=== PATIENT | female | born 1995 | race Caucasian/White ===

== ENCOUNTER 2018-03-04 06:31 | Inpatient (IN) | payer MEDICAID ==
[2018-03-04] VITALS (87 sets, daily range): BP systolic 87–126; BP diastolic 46–77; PULSE 59–120; RESP 18; TEMP 97.9–99.8; O2SAT 97
[~2018-03-04] VITALS: Ht 157.5 cm; Wt 66.2 kg
[~2018-03-04 06:31] MED LIST: ALBUAER3 INH; ALBUS PO; FLOV44AE IN; PREN1CHW7 PO; RANI150T PO; ZANT150T2 PO
[2018-03-04] MEDS ORDERED: LACTATED RINGER'S 1000 ML INJ 1,000 ML IV SCH (07:39)
[2018-03-04] MEDS ORDERED: OXYTOCIN 30 UNITS-500ML PREMIX 500 ML IV ONE (07:45)
[2018-03-04] MEDS ORDERED: MINERAL OIL 10 ML VIAL TOPICAL PRN (07:45)
[2018-03-04] MEDS ORDERED: SODIUM CHLORID 0.9% 500 ML INJ 500 ML IV PRN (07:45)
[2018-03-04] MEDS ORDERED: ONDANSETRON HCL 4 MG/2 ML VIAL IV PUSH PRN (07:45)
[2018-03-04] MEDS ORDERED: LIDOCAINE HCL 1% 50 ML VIAL INFIL PRN (07:45)
[2018-03-04] MEDS ORDERED: CITRIC ACID-SODIUM CITRATE LIQ 30 ML UDC PO SCH (07:45)
[2018-03-04] MEDS ORDERED: LIDOCAINE HCL 1% 50 ML VIAL I-DERMAL PRN (07:45)
--- NOTE | 2018-03-04 07:58 | HHI.HP ---
History & Physical H&P HPI Chief Complaint Contractions Date Seen: Mar 04, 2018 Travel History International Travel<30 Days: No Contact w/Intl Traveler<30Days: No History of Present Illness HPI Patient is a 22 year old at 39-3/7 weeks gestation presenting for contractions. Contractions started around 3AM and have increasing in intensity and frequency. She states that she lost her mucus plug but denies any gush or leaking of fluid. Positive movement. No complications with . History (Limited) History Past Medical History Narrative Medical Asthma, used her albuterol inhaler twice in the past month Obstetric History Obstetric History Past Surgical History Surgical History: No Previous Surgery Family History Family History: Negative Social History Alcohol Use: No Tobacco Use: No Substance Abuse: No Allergies-Medications Allergies-Medications (Allergen,Severity, Reaction): Coded Allergies: amoxicillin (Unverified Allergy, Severe, hives, 11/10/17) penicillin G (Unverified Allergy, Severe, hives, 11/10/17) Home Meds Active Scripts Albuterol 8.5 GM Inh (Proair Hfa 8.5 GM Inh) 90 Mcg/Act Aer, 2 PUFF INH Q4-6H Y for SHORTNESS OF BREATH, #1 INHALER 1 Refill 108 mcg/actuation [facility] Ranitidine (Ranitidine) 150 Mg Tab, 150 MG PO BID for Heartburn Management, #60 TAB 0 Refills Prov:[facility] 07/29/17 Vit W/ Ferric Phospha (Vitafol Gummies 3.33-0.333-34.8 mg) 1 Chw Chw, 1 CHEW PO DAILY, #30 CHEW 4 Refills Prov:[facility] 07/29/17 Vit W/ Ferric Phospha (Vitafol Gummies 3.33-0.333-34.8 mg) 1 Chw Chw, 3 TAB PO DAILY, #90 BOTTLE 11 Refills Prov:Sindi CansecoP 07/22/17 Ranitidine (Zantac) 150 Mg Tab, 150 MG PO BID for Reduce Stomach Acid, #60 TAB 11 Refills Prov:Sindi Canseco [facility] 07/22/17 Reported Medications Fluticasone Propionate Hfa (Flovent Hfa) 44 Mcg Aer, 2 PUFF IN BID, AER 06/18/16 Albuterol Sulfate (Albuterol Sulfate) 2 Mg/5 Ml Syp, 2 MG PO QID, ML 06/18/16 ROS Review of Systems Except as stated in HPI: all other systems reviewed are Neg General / Constitutional: No: Fever, Chills Eyes: No: Blurred Vision, Visual changes HENT: No: Headaches Cardiovascular: No: Palpitations Respiratory: No: Cough, Short of Breath Gastrointestinal: No: Nausea, Vomiting Genitourinary: Pelvic Pain, Discharge, No: Dysuria, Vaginal Bleeding Musculoskeletal: No: Edema Neurologic: No: Headache Psychiatric: No: Substance Abuse Physical Exam Physical Exam Narrative GENERAL: Well-nourished, well-developed patient. SKIN: Warm and dry. HEAD: Normocephalic and atraumatic. EYES: No scleral icterus. No injection or drainage. ENT: No nasal drainage noted. Mucous membranes pink. Airway patent. NECK: Supple, trachea midline. No JVD. CARDIOVASCULAR: Regular rate and rhythm without murmurs, gallops, or rubs. RESPIRATORY: Breath sounds equal bilaterally. No accessory muscle use. ABDOMEN/GI: Abdomen soft, non-tender, bowel sounds present, no rebound, no guarding Gravid to 39 weeks size GENITOURINARY: External Genitalia: intact and normal in appearance Cervix: midposition Dilatation: 3-4 Effacement: 80 Station: -1 Presentation: vertex Membranes: intact Uterine Contractions: q3-4 min FHT's: Category: I Baseline: 140 Reactive: + Variability: moderate Decels: none EXTREMITIES: No cyanosis or edema. BACK: Nontender without obvious deformity. NEUROLOGICAL: Awake and alert. Motor and sensory grossly within normal limits. Normal speech. Data Data Data Vital Signs Reviewed: Yes Orders Orders Admit To Inpatient (03/04/18 ) Code Status (03/04/18 07:39) Vital Signs (Adult) .Per protocol (03/04/18 07:39) Activity Oob Ad Violetta (03/04/18 07:39) Heart (03/04/18 07:39) Amnioinfusion (03/04/18 07:39) Urinary Catheter Management .ONCE (03/04/18 07:39) Diet Liquid (03/04/18 Breakfast) Lactated Ringer's 1000 Ml Inj (Lr 1000 M (03/04/18 07:39) Lactated Ringer's 1000 Ml Inj (Lr 1000 M (03/04/18 07:39) Sodium Chlorid 0.9% 500 Ml Inj (Ns 500 M (03/04/18 07:45) Sodium Chlor 0.9% 1000 Ml Inj (Ns 1000 M (03/04/18 07:59) Lidocaine 1% Inj (50 Ml) (Xylocaine 1% I (03/04/18 07:45) Citric Acid-Sodium Citrate Liq (Bicitra (03/04/18 07:45) Ondansetron Inj (Zofran Inj) (03/04/18 07:45) Fentanyl Inj (Fentanyl Inj) (03/04/18 07:45) Fentanyl Inj (Fentanyl Inj) (03/04/18 07:45) Complete Blood Count With Diff (03/04/18 07:39) Hold Clot (03/04/18 07:39) Abo/Rh Blood Type (03/04/18 07:39) Urinalysis - C+S If Indicated (03/04/18 07:39) Drug Screen, Random Urine (03/04/18 07:39) Ob/Psych Drug Screen, Urine (03/04/18 07:39) Resp Oxygen Non Rebreathe Mask (03/04/18 ) ^ Epidural / Intrathecal Infus (03/04/18 07:39) Oxytocin 30 Units-500ml Premix (Pitocin (03/04/18 07:45) Lidocaine 1% Inj (50 Ml) (Xylocaine 1% I (03/04/18 07:45) Light Mineral Oil (Muri-Lube Oil) (03/04/18 07:45) Inpatient Certification (03/04/18 ) Group B Strep: Negative MDM MDM Medical Record Reviewed: Yes Plan 22 year old at 39-3/7 weeks gestation. 1. IUP- Category I tracing, reassuring. 2. Cervical change noted, will admit for labor. 3. GBS negative. dw. Ct Morgan MD R3 Mar 04, 2018 07:58
[2018-03-04] MEDS ORDERED: SODIUM CHLOR 0.9% 1000 ML INJ 1,000 ML IV PRN (07:59)
[2018-03-04] MEDS ORDERED: CETI5CHW CHEW (08:22)
[2018-03-04 08:26] LABS: AUTOMATED NEUTROPHIL # 10.5 TH/MM3 (1.8-7.7); BASOPHIL # 0.1 TH/MM3 (0-0.2); BASOPHIL % 0.6 % (0.0-2.0); EOSINOPHIL # 0.1 TH/MM3 (0-0.4); EOSINOPHIL % 0.6 % (0.0-4.0); HEMATOCRIT 33.2 % (35.0-46.0); HEMOGLOBIN 11.1 GM/DL (11.6-15.3); LYMPH % 19.3 % (9.0-44.0); LYMPHOCYTE # 2.7 TH/MM3 (1.0-4.8); MEAN CELL VOLUME 74.4 FL (80.0-100.0); MEAN CORPUSCULAR HEMOGLOBIN 24.9 PG (27.0-34.0); MEAN CORPUSCULAR HGB CONC 33.5 % (32.0-36.0); MEAN PLATELET VOLUME 8.6 FL (7.0-11.0); MONO % 5.2 % (0.0-8.0); MONOCYTE # 0.7 TH/MM3 (0-0.9); NEUT % 74.3 % (16.0-70.0); PLATELET COUNT 194 TH/MM3 (150-450); RED BLOOD COUNT 4.46 MIL/MM3 (4.00-5.30); RED CELL DISTRIBUTION WIDTH 14.6 % (11.6-17.2); WHITE BLOOD COUNT 14.1 TH/MM3 (4.0-11.0)
[2018-03-04 08:31] LABS: BACTERIA, URINE FEW /hpf; BILIRUBIN, URINE NEG (NEG); BLOOD, URINE LARGE (NEG); GLUCOSE,URINE NEG (NEG); KETONE, URINE NEG (NEG); MUCUS URINE FEW /lpf (OCC); NITRITE,URINE NEG (NEG); PH, URINE 6.5 (5.0-8.5); SQUAMOUS EPITHELIAL CELL URINE 15 /hpf (0-5); URINE COLOR YELLOW (YELLW/STRAW); URINE LEUKOCYTE ESTERASE LARGE (NEG)
[2018-03-04] MEDS ORDERED: ePHEDrine/NS 25 MG/5 ML SYRINGE ONE (08:36)
[2018-03-04] MEDS ORDERED: fentaNYL 2MCG-BUPIV 0.125% INJ 100 ML ONE (08:36)
[2018-03-04] MEDS: LACTATED RINGER'S 1000 ML INJ 1,000 ML IV PRN ×2 (08:42→09:51)
[2018-03-04] MEDS ORDERED: ePHEDrine/NS 25 MG/5 ML SYRINGE IV PUSH PRN (10:15)
[2018-03-04] MEDS ORDERED: DO NOT ADMINISTER ANTICOAGULANTS PRN (10:15)
[2018-03-04] MEDS ORDERED: NO SYSTEM NARCOTICS PRN (10:15)
[2018-03-04] MEDS ORDERED: fentaNYL 2MCG-BUPIV 0.125% 100 ML EPIDURAL PRN (10:15)
--- NOTE | 2018-03-04 12:51 | PD.LABORPN ---
Subjective Subjective Patient doing well s/p Epidural No complaints (Susana Redmond MD R1) Objective Vital Signs Vital Signs Date Time Temp Pulse Resp B/P (MAP) Pulse Ox O2 Delivery O2 Flow Rate FiO2 03/04/18 12:24 18 03/04/18 12:20 66 03/04/18 12:15 63 03/04/18 12:15 114/53 (73) 03/04/18 12:00 73 03/04/18 12:00 108/53 (71) 03/04/18 11:54 18 03/04/18 11:45 66 03/04/18 11:45 112/51 (71) 03/04/18 11:26 84 18 101/59 (73) 03/04/18 11:25 62 03/04/18 11:20 63 03/04/18 11:15 87/68 (74) 03/04/18 11:15 96 03/04/18 10:50 77 03/04/18 10:45 59 116/57 (76) 03/04/18 10:40 59 03/04/18 10:35 62 03/04/18 10:30 61 103/56 (72) 03/04/18 10:24 97.9 03/04/18 10:23 18 03/04/18 10:21 66 104/58 (73) 03/04/18 10:20 85 03/04/18 10:15 97/55 (69) 03/04/18 10:15 80 03/04/18 10:14 18 03/04/18 10:10 82 03/04/18 10:05 73 03/04/18 10:00 72 98/57 (71) 03/04/18 09:50 75 99/51 (67) 03/04/18 09:50 68 03/04/18 09:45 70 03/04/18 09:40 88 03/04/18 09:40 66 103/64 (77) 03/04/18 09:36 66 112/62 (79) 03/04/18 09:35 67 03/04/18 09:33 64 114/55 (74) 03/04/18 09:30 68 03/04/18 09:15 77 126/70 (88) 03/04/18 09:00 63 124/65 (84) 03/04/18 08:59 18 03/04/18 08:30 60 112/62 (79) 03/04/18 08:20 59 104/56 (72) 03/04/18 08:00 18 Objective Pelvic Exam: Cervix: midposition Dilatation: 8 Effacement: 90 Station: 0 Presentation: vetex Membranes: Ruptured Uterine Contractions: every 3 min FHT's: Category: 1 Baseline: 130 Reactive: yes Variability: moderate Decels: none (Susana Redmond MD R1) Assessment/Plan Assessment and Plan 22 year old at 39-3/7 weeks gestation in labor. 1. IUP- Category I tracing, reassuring. 2. IUPC placed to monitor contractions 3. s/p AROM and epidural 3. GBS negative. dw. Dr. Baez (Susana Redmond MD R1) Assessment and Plan Patient seen and evaluated with resident under direct supervision, agree with assessment and plan. (Wilian Baez MD) Susana Redmond MD R1 Mar 04, 2018 12:51 Wilian Baez MD Mar 04, 2018 15:02
[2018-03-04] MEDS ORDERED: OXYTOCIN 30 UNITS-500ML PREMIX 500 ML IV PRN ×2 (13:45)
[2018-03-04] MEDS ORDERED: MEASLES, MUMPS, RUBELLA VACCINE 0.5 ML VIAL SQ ONE (16:00)
[2018-03-04] MEDS ORDERED: DIPHTH/TETANUS/ACEL PERTUSSIS (BOOSTER) 0.5 ML VIAL/PFS IM ONE (16:00)
[2018-03-04] MEDS ORDERED: LIDOCAINE HCL 1% PF 30 ML VIAL ONE (16:15)
--- NOTE | 2018-03-04 16:39 | PD.OB.DELI ---
Weeks gestation: 39 Pt started active labor?: Yes Anesthesia: Epidural Episiotomy: None Vaginal Delivery: Normal, Spontaneous Presentation: Occiput anterior Nuchal Cord: None Delayed cord clamping (45 sec): Yes : Female Delivery date: Mar 04, 2018 Delivery time: 16:10 One Minute : 9 Five Minute : 9 Placenta: Spontaneous delivery Laceration: 2 deg Repair: Vicryl running Additional Information Delivery performed by Dr. Redmond and supervised by Dr. Solorzano Laceration repair and supervised by Dr. Baez (Susana Redmond MD R1) Attestation I was in attendance for delivery and I did the repair. (Wilian Baez MD) Susana Redmond MD R1 Mar 04, 2018 16:39 Wilian Baez MD Mar 04, 2018 17:01
[2018-03-04] MEDS ORDERED: SODIUM CHLORIDE 0.9% FLUSH 10 ML FLUSH IV FLUSH PRN (16:45)
[2018-03-04] MEDS ORDERED: ONDANSETRON ODT 4 MG TAB PO PRN (16:45)
[2018-03-04] MEDS ORDERED: oxyCODONE/ACETAMINOPHEN 5 MG/325 MG TAB PO PRN ×2 (16:45)
[2018-03-04] MEDS ORDERED: ACETAMINOPHEN 325 MG TAB PO PRN (16:45)
[2018-03-04] MEDS ORDERED: ALUMINUM/MAGNESIUM/SIMETH 30 ML CUP PO PRN (16:45)
[2018-03-04] MEDS ORDERED: OXYTOCIN 30 UNITS-500ML PREMIX 500 ML IV SCH (16:45)
[2018-03-04] MEDS ORDERED: DOCUSATE SODIUM 50 MG/SENNA 8.6 MG TAB PO PRN (16:45)
[2018-03-04] MEDS ORDERED: ZOLPIDEM TARTRATE 5 MG TAB PO PRN (16:45)
[2018-03-04] MEDS: IBUPROFEN 800 MG TAB PO PRN (19:30)
[2018-03-04] MEDS: WITCH HAZEL 50%/GLYCERIN 12.5% 40 PAD JAR TOPICAL PRN (19:30)
[2018-03-04] MEDS: BENZOCAINE 20% TOPICAL SPRAY 60 ML CAN TOPICAL PRN (19:30)
[2018-03-04] MEDS ORDERED: SODIUM CHLORIDE 0.9% FLUSH 10 ML FLUSH IV FLUSH SCH (21:00)
[2018-03-05] MEDS: IBUPROFEN 800 MG TAB PO PRN ×3 (04:25→21:53)
[2018-03-05 08:00] VITALS: BP 105/69; PULSE 67; RESP 18; TEMP 97.8; O2SAT 100
--- NOTE | 2018-03-05 08:34 | HHI.OB ---
Subjective Post Day: 1 Remarks Pt seen and examined this morning. day # 1 AFVSS overnight. Decreased lochia. Denies dysuria. No breast tenderness. She is feeding the baby via breast. Appetite good. No nausea or vomiting. Patient has not yet had a bowel movement, but does endorse bowel gas. Ambulating well. Denies calf pain or shortness of breath. Otherwise, she is doing well this morning and has no other concerns. (Darrell Alcala MD R2) Remarks Patient seen and evaluated with resident under direct supervision, agree with assessment and plan. (Wilian Baez MD) Objective Vitals/I&O Vital Signs Date Time Temp Pulse Resp B/P (MAP) Pulse Ox O2 Delivery O2 Flow Rate FiO2 03/05/18 08:00 97.8 67 18 105/69 (81) 100 03/04/18 20:00 98.0 95 18 104/53 (70) 97 03/04/18 18:03 18 03/04/18 18:00 99 96/68 (77) 03/04/18 17:50 18 03/04/18 17:45 96 117/69 (85) 03/04/18 17:30 82 103/67 (79) 03/04/18 17:17 18 03/04/18 17:15 66 126/64 (84) 03/04/18 17:05 99.7 18 03/04/18 17:00 73 125/67 (86) 03/04/18 16:45 66 122/63 (82) 03/04/18 16:35 18 03/04/18 16:15 88 120/61 (80) 03/04/18 15:45 87 18 120/63 (82) 03/04/18 15:45 83 03/04/18 15:30 18 03/04/18 15:30 88 03/04/18 15:30 75 124/77 (93) 03/04/18 15:25 66 03/04/18 15:20 72 03/04/18 15:15 83 117/59 (78) 03/04/18 15:15 65 03/04/18 15:10 74 03/04/18 15:05 77 03/04/18 15:00 68 03/04/18 15:00 74 91/46 (61) 03/04/18 14:55 72 03/04/18 14:50 75 03/04/18 14:45 82 104/52 (69) 03/04/18 14:35 74 03/04/18 14:30 74 03/04/18 14:30 111/71 (84) 03/04/18 14:20 81 03/04/18 14:15 75 110/63 (79) 03/04/18 14:10 71 03/04/18 14:05 79 03/04/18 14:00 87 113/68 (83) 03/04/18 13:58 99.8 18 03/04/18 13:55 76 03/04/18 13:50 86 03/04/18 13:45 89 03/04/18 13:45 108/68 (81) 03/04/18 13:40 81 03/04/18 13:30 111/63 (79) 03/04/18 13:30 80 03/04/18 13:24 18 03/04/18 13:20 79 03/04/18 13:15 82 102/56 (71) 03/04/18 13:15 73 03/04/18 13:10 73 03/04/18 13:05 74 03/04/18 13:00 91 120/72 (88) 03/04/18 13:00 75 03/04/18 12:57 98.4 03/04/18 12:54 18 03/04/18 12:50 71 03/04/18 12:45 120 03/04/18 12:45 88 105/73 (84) 03/04/18 12:40 62 03/04/18 12:35 61 03/04/18 12:30 68 03/04/18 12:30 70 125/73 (90) 03/04/18 12:24 18 03/04/18 12:20 66 03/04/18 12:15 63 03/04/18 12:15 114/53 (73) 03/04/18 12:00 73 03/04/18 12:00 108/53 (71) 03/04/18 11:54 18 03/04/18 11:45 66 03/04/18 11:45 112/51 (71) 03/04/18 11:26 84 18 101/59 (73) 4/27/18 11:25 62 03/04/18 11:20 63 03/04/18 11:15 87/68 (74) 03/04/18 11:15 96 03/04/18 10:50 77 03/04/18 10:45 59 116/57 (76) 03/04/18 10:40 59 03/04/18 10:35 62 03/04/18 10:30 61 103/56 (72) 03/04/18 10:24 97.9 03/04/18 10:23 18 03/04/18 10:21 66 104/58 (73) 03/04/18 10:20 85 03/04/18 10:15 97/55 (69) 03/04/18 10:15 80 03/04/18 10:14 18 03/04/18 10:10 82 03/04/18 10:05 73 03/04/18 10:00 72 98/57 (71) 03/04/18 09:50 75 99/51 (67) 03/04/18 09:50 68 03/04/18 09:45 70 03/04/18 09:40 88 03/04/18 09:40 66 103/64 (77) 03/04/18 09:36 66 112/62 (79) 03/04/18 09:35 67 03/04/18 09:33 64 114/55 (74) 03/04/18 09:30 68 03/04/18 09:15 77 126/70 (88) 03/04/18 09:00 63 124/65 (84) 03/04/18 08:59 18 Objective Remarks GENERAL: Well-nourished, well-developed patient. CARDIOVASCULAR: Regular rate and rhythm without murmurs, gallops, or rubs. RESPIRATORY: Breath sounds equal bilaterally. No accessory muscle use. ABDOMEN/GI: Abdomen soft, non-tender. Fundus: Firm, non-tender at umbilicus. GENITOURINARY: Light to moderate bleeding. EXTREMITIES: No cyanosis or edema, non-tender, without signs of DVT. Medications and IVs Current Medications Medications (Trade) Dose Ordered Sig/Elva Route Start Time Stop Time Status Last Admin (Bicitra Liq) 30 ml TRANSPORT AIDE PO 03/04/18 07:45 03/08/18 07:44 (Zofran Inj) 4 mg Q6H PRN IV PUSH 03/04/18 07:45 (Muri-Lube Oil) 10 ml UNSCH PRN TOPICAL 03/04/18 07:45 ([facility] [place] [facility]) No systemic narcotics to be given except... UNSCH PRN .XX 03/04/18 10:15 03/05/18 10:14 ([facility] [place] [facility]) DO NOT ADMINISTER ANY ANTICOAGUL... UNSCH PRN .XX 03/04/18 10:15 03/05/18 10:14 Oxytocin 500 ml @ 0 mls/hr TITRATE PRN IV 03/04/18 13:45 03/04/18 14:10 (NS Flush) 2 ml BID IV FLUSH 03/04/18 21:00 (NS Flush) 2 ml UNSCH PRN IV FLUSH 03/04/18 16:45 (Tylenol) 650 mg Q4H PRN PO 03/04/18 16:45 (Motrin) 800 mg Q8H PRN PO 03/04/18 16:45 03/05/18 04:25 (Percocet 5-325 Mg) 1 tab Q4H PRN PO 03/04/18 16:45 (Percocet 5-325 Mg) 2 tab Q4H PRN PO 03/04/18 16:45 (Americaine 20% Top Spr) 1 spray Q4H PRN TOPICAL 03/04/18 16:45 03/04/18 19:30 (Tucks Pads) 1 applic QID PRN TOPICAL 03/04/18 16:45 03/04/18 19:30 (Luiza-Colace) 2 tab Q12H PRN PO 03/04/18 16:45 (Ambien) 5 mg HS PRN PO 03/04/18 16:45 (Mag-Al Plus Susp Liq) 15 ml Q8H PRN PO 03/04/18 16:45 (Zofran Odt) 4 mg Q6H PRN PO 03/04/18 16:45 (Darrell Alcala MD R2) Assessment/Plan Problem List: (1) (spontaneous vaginal delivery) ICD Codes: O80 - Encounter for full-term uncomplicated delivery Status: Acute Assessment and Plan 22 y/o female who is day # 1 s/p . -Continue routine care. -Motrin PRN pain. -Encouraged OOB. Advised pelvic rest for 6 wks. -Re: ctrl, she would like to discuss her options at her follow-up appointment.. -Anticipate discharge tomorrow. lorena Baez MD Discharge Planning Tomorrow (Darrell Alcala MD R2) Darrell Alcala MD R2 Mar 05, 2018 08:34 Wilian Baez MD Mar 05, 2018 09:50
[2018-03-05 14:00] VITALS: BP 105/69
[2018-03-05 20:00] VITALS: BP 100/66; PULSE 68; RESP 18; TEMP 98.4; O2SAT 97
[2018-03-06] MEDS ORDERED: IBUP1TAB7 PO (05:17)
[2018-03-06] MEDS ORDERED: PERI PO (05:17)
--- NOTE | 2018-03-06 05:17 | HHI.DCPOC ---
Discharge Care Plan Diagnosis: (1) (spontaneous vaginal delivery) Report Symptoms to Your Doctor -Temperature above 100.5 degrees -Redness, of incision or excessive or foul smelling drainage -Unusual pain or calf pain -Increased vaginal bleeding -Painful or difficulty urinating -Feelings of extreme sadness or anxiety after 2 weeks Goals to Promote Your Health * To prevent worsening of your condition and complications * To maintain your health at the optimal level Directions to Meet Your Goals Take your medications as prescribed Follow your dietary instruction Follow activity as directed Ensure plenty of rest for recovery Drink fluids for hydration Keep your appointments as scheduled Take your immunizations and boosters as scheduled If your symptoms worsen call your PCP, if no PCP go to Urgent Care Center or Emergency Room Smoking is Dangerous to Your Health. Avoid second hand smoke Call the 24-hour crisis hotline for domestic abuse at Darrell Alcala MD R2 Mar 06, 2018 05:17
--- NOTE | 2018-03-06 06:04 | HHI.OB ---
Subjective Post Day: 2 Remarks Pt seen and examined this morning. day #2 AFVSS overnight. Decreased lochia. Denies dysuria. No breast tenderness. She is feeding the baby via breast. Appetite good. No nausea or vomiting. Patient endorses having a bowel movement and continues to pass bowel gas. Ambulating well. Denies calf pain or shortness of breath. Otherwise, she is doing well this morning and has no other concerns. Objective Vitals/I&O Vital Signs Date Time Temp Pulse Resp B/P (MAP) Pulse Ox O2 Delivery O2 Flow Rate FiO2 03/05/18 20:00 100/66 (77) 03/05/18 20:00 98.4 68 18 97 03/05/18 14:00 105/69 (81) 03/05/18 08:00 97.8 67 18 105/69 (81) 100 Objective Remarks GENERAL: Well-nourished, well-developed patient. CARDIOVASCULAR: Regular rate and rhythm without murmurs, gallops, or rubs. RESPIRATORY: Breath sounds equal bilaterally. No accessory muscle use. ABDOMEN/GI: Abdomen soft, non-tender. Fundus: Firm, non-tender at umbilicus. GENITOURINARY: Light to moderate bleeding. EXTREMITIES: No cyanosis or edema, non-tender, without signs of DVT. Medications and IVs Current Medications Medications (Trade) Dose Ordered Sig/Elva Route Start Time Stop Time Status Last Admin (Bicitra Liq) 30 ml [employer] PO 03/04/18 07:45 03/08/18 07:44 (Zofran Inj) 4 mg Q6H PRN IV PUSH 03/04/18 07:45 (Muri-Lube Oil) 10 ml UNSCH PRN TOPICAL 03/04/18 07:45 Oxytocin 500 ml @ 0 mls/hr TITRATE PRN IV 03/04/18 13:45 03/04/18 14:10 (NS Flush) 2 ml BID IV FLUSH 03/04/18 21:00 (NS Flush) 2 ml UNSCH PRN IV FLUSH 03/04/18 16:45 (Tylenol) 650 mg Q4H PRN PO 03/04/18 16:45 (Motrin) 800 mg Q8H PRN PO 03/04/18 16:45 03/05/18 21:53 (Percocet 5-325 Mg) 1 tab Q4H PRN PO 03/04/18 16:45 (Percocet 5-325 Mg) 2 tab Q4H PRN PO 03/04/18 16:45 (Americaine 20% Top Spr) 1 spray Q4H PRN TOPICAL 03/04/18 16:45 03/04/18 19:30 (Tucks Pads) 1 applic QID PRN TOPICAL 03/04/18 16:45 03/04/18 19:30 (Luiza-Colace) 2 tab Q12H PRN PO 03/04/18 16:45 (Ambien) 5 mg HS PRN PO 03/04/18 16:45 (Mag-Al Plus Susp Liq) 15 ml Q8H PRN PO 03/04/18 16:45 (Zofran Odt) 4 mg Q6H PRN PO 03/04/18 16:45 Assessment/Plan Problem List: (1) (spontaneous vaginal delivery) ICD Codes: O80 - Encounter for full-term uncomplicated delivery Status: Acute Assessment and Plan 22 y/o female who is day #2 s/p . -Continue routine care. -Motrin PRN pain. -Encouraged OOB. Advised pelvic rest for 6 wks. -Re: ctrl, she would like to discuss her options at her follow-up appointment.. -Anticipate discharge today. lorena Patton MD Discharge Planning Today Darrell Alcala MD R2 Mar 06, 2018 06:04
[2018-03-06 08:00] VITALS: BP 105/64; PULSE 68; RESP 13; TEMP 97.8; O2SAT 100
[2018-03-06] MEDS: IBUPROFEN 800 MG TAB PO PRN (08:25)
[2018-03-06] MEDS: BENZOCAINE 20% TOPICAL SPRAY 60 ML CAN TOPICAL PRN (11:44)
[2018-03-06] MEDS: WITCH HAZEL 50%/GLYCERIN 12.5% 40 PAD JAR TOPICAL PRN (11:44)
== END 2018-03-06 15:01 | disposition home or self-care (01) | DRG 775 ==
LOC: HOBED 06:31 → H2EA 08:00 → H1EA 18:53
PROVIDERS: ADMIT Obstetrics & Gynecology; ATTEND Obstetrics & Gynecology
PROC: 10E0XZZ Delivery of Products of Conception, External Approach (ICD-10-PCS; principal; 2018-03-04)
PROC: 0KQM0ZZ Repair Perineum Muscle, Open Approach (ICD-10-PCS; 2018-03-04)
PROC: 00HU33Z Insertion of Infusion Device into Spinal Canal, Percutaneous Approach (ICD-10-PCS; 2018-03-04)
PROC: 3E0R3BZ Introduction of Anesthetic Agent into Spinal Canal, Percutaneous Approach (ICD-10-PCS; 2018-03-04)
PROC: 10907ZC Drainage of Amniotic Fluid, Therapeutic from Products of Conception, Via Natural or Artificial Opening (ICD-10-PCS; 2018-03-04)
DX: O70.1 Second degree perineal laceration during delivery (principal); Z37.0 Single live birth; J45.909 Unspecified asthma, uncomplicated; O99.52 Diseases of the respiratory system complicating childbirth; Z3A.39 39 weeks gestation of pregnancy; Z23 Encounter for immunization
CPT/HCPCS: 59025; 80307; 81001; 85025; 87086; 90715; G0481; J2590; J3010; J7120